=== PATIENT | female | born 1985 | race Caucasian/White ===

== ENCOUNTER 2018-04-02 23:32 | Emergency (ER) | payer BC ==
[2018-04-03] MEDS ORDERED: ACTIVATED CHARCOAL/SORBITOL SOL 50 GM/240 ML BTL PO ONE
[2018-04-03] MEDS ORDERED: 0.9 % SODIUM CHLORIDE 1,000 ML BAG IV ONE (00:01)
[2018-04-03 00:27] LABS: BASO % 0.3 % (0-6); EOS % 0.4 % (0-6); GRAN % 60.2 % (47-80); HEMATOCRIT 39.4 % (35.0-47.0); LYMPH % 32.9 % (16-45); MEAN PLATELET VOLUME 11.3 fl (7.4-10.4); MONO % 6.2 % (0-9); PLATELET COUNT 214 K/uL (130-400); RED BLOOD COUNT 4.33 M/uL (3.80-5.40); RED CELL DISTRIBUTION WIDTH 12.9 % (11.5-14.5); WHITE BLOOD COUNT W/O DIFF 7.1 K/uL (4.2-12.2)
[2018-04-03 00:40] LABS: BILIRUBIN,TOTAL < 0.20 mg/dL (0.2-1.0); BLOOD UREA NITROGEN 10 mg/dL (6-20); CREATININE 0.9 mg/dL (0.5-0.9); EST GLOMERULAR FILTRATION RATE > 60 mL/min
[2018-04-03 00:43] LABS: GLUCOSE,RANDOM 87 mg/dL (74-109)
[2018-04-03 00:45] LABS: ALT/SGPT 13 U/L (<33); AST/SGOT 17 U/L (10.0-35.0)
[2018-04-03 00:46] LABS: ACETAMINOPHEN < 5.0 ug/mL (10.0-30.0); ALB/GLOB RATIO 1.8 (1.1-1.8); ALBUMIN 4.5 g/dL (4.0-5.0); ALKALINE PHOSPHATASE 48 U/L (35-104); SALICYLATE < 0.3 mg/dL (2.8-20)
--- NOTE | 2018-04-03 02:41 | Emergency Department Record ---
History of Present Illness - General Chief Complaint: Ingestion Stated Complaint: OD Time Seen by Provider: 04/02/18 23:58 Source: Patient Mode of Arrival: EMS Limitations: No limitations - History of Present Illness Initial Comments: pt brought in by ems 30 minutes after she had overdosed taking 5 valium and drinking a six pack of beer. pt denies suicide attempt and states that if she wanted to she would have taken all 90 of her pills. she states she was just having a stressful day. pt states she would never commit suicide, that it is a very selfish thing to do and she has children. Onset/Timin -: Minutes(s) - Related Data Home Medications Medication Instructions Recorded Confirmed Last Taken Diazepam [Valium] 10 mg PO BID 04/02/18 04/02/18 Unknown Allergies Allergy/AdvReac Type Severity Reaction Status Date / Time amoxicillin Allergy Unknown HIVES Verified 04/02/18 23:49 Carbapenems Allergy Unknown PT UNSURE Verified 04/02/18 23:49 OF REACTION ceftriaxone sodium Allergy Unknown "I don't Verified 04/02/18 23:49 [From ROCEPHIN] want it." Cephalosporins Allergy Unknown PT UNSURE Verified 04/02/18 23:49 OF REACTION clavulanic acid Allergy Unknown PT UNSURE Verified 04/02/18 23:49 OF REACTION Penicillins Allergy Unknown RASH Verified 04/02/18 23:49 Sulfa (Sulfonamide Allergy Unknown PT UNSURE Verified 04/02/18 23:49 Antibiotics) OF REACTION sulfacetamide Allergy Unknown PT UNSURE Verified 04/02/18 23:49 OF REACTION Travel Screening - Travel/Exposure Within Last 30 Days Have you traveled within the last 30 days?: No - Travel/Exposure Within Last Year Have you traveled outside the [place] in the last year?: No - Additonal Travel Details Have you been exposed to anyone with a communicable illness?: No - Travel Symptoms Symptom Screening: None Past Medical History - SOCIAL HISTORY Smoking Status: Current every day smoker Alcohol Use: Occasional Drug Use: None - RESPIRATORY Hx Respiratory Disorders: No - CARDIOVASCULAR Hx Cardio Disorders: No - NEURO Hx Neuro Disorders: Yes Hx Headaches: Yes Comment:: hx meningitits - GI Hx GI Disorders: No - Hx Genitourinary Disorders: No - ENDOCRINE Hx Endocrine Disorders: No - MUSCULOSKELETAL Hx Musculoskeletal Disorders: No - PSYCH Hx Psych Problems: Yes Comment:: adhd - HEMATOLOGY/ONCOLOGY Hx Hematology/Oncology Disorders: No Family Medical History Any Significant Family History?: No Course Vital Signs 04/02/18 04/03/18 04/03/18 23:38 00:24 00:25 Temperature 98.1 F Pulse Rate [ 122 H 105 H Pulse Ox Probe] Respiratory 18 20 Rate Blood Pressure 142/70 126/28 [Left Arm] Pulse Ox 96 97 97 04/03/18 04/03/18 01:15 02:00 Temperature Pulse Rate [ 92 H 90 Pulse Ox Probe] Respiratory 20 20 Rate Blood Pressure 108/73 107/68 [Left Arm] Pulse Ox 96 95 Medical Decision Making - Lab Data Result diagrams: 04/03/18 00:15 04/03/18 00:15 Lab Results 04/03/18 04/03/18 04/03/18 Range/Units 00:03 00:15 00:15 WBC 7.1 (4.2-12.2) K/uL RBC 4.33 (3.80-5.40) M/uL Hgb 13.0 (11.6-16.0) gm/dl Hct 39.4 (35.0-47.0) % MCV 91.0 (81-97) fl MCH 30.0 (27-33) pg MCHC 33.0 (32-36) g/dl RDW 12.9 (11.5-14.5) % Plt Count 214 (130-400) K/uL MPV 11.3 H (7.4-10.4) fl Gran % 60.2 (47-80) % Lymphocytes % 32.9 (16-45) % Monocytes % 6.2 (0-9) % Eosinophils % 0.4 (0-6) % Basophils % 0.3 (0-6) % Sodium 148 H (136-145) mmol/L Potassium 4.2 (3.4-4.5) mmol/L Chloride 104 (98-107) mmol/L Carbon Dioxide 23.0 (22-29) mmol/L Anion Gap 21.0 H (7-16) BUN 10 (6-20) mg/dL Creatinine 0.9 (0.5-0.9) mg/dL Estimated GFR > 60 mL/min Random Glucose 87 (74-109) mg/dL Calcium 8.8 (8.6-10.0) mg/dL Total Bilirubin < 0.20 L (0.2-1.0) mg/dL AST 17 (10.0-35.0) U/L ALT 13 (<33) U/L Alkaline Phosphatase 48 (35-104) U/L Total Protein 7.0 (6.6-8.7) g/dL Albumin 4.5 (4.0-5.0) g/dL Globulin 2.5 (1.4-4.8) gm/dL Albumin/Globulin Ratio 1.8 (1.1-1.8) Salicylates < 0.3 L (2.8-20) mg/dL Acetaminophen < 5.0 L (10.0-30.0) ug/mL Ethyl Alcohol Cancelled 0.200 H Disposition Quality - Blood Pressure Screening Does Patient Have Any of the Following: No Blood Pressure Classification: Normal BP Reading Systolic Measurement: 107 Diastolic Measurement: 68 Screening for High Blood Pressure: < Normal BP, F/U Not Required > [G8721]
--- NOTE | 2018-04-03 02:48 | Emergency Department Record ---
History of Present Illness - General Chief Complaint: Ingestion Stated Complaint: OD Time Seen by Provider: 04/02/18 23:58 Source: Patient, EMS Mode of Arrival: EMS Limitations: No limitations - History of Present Illness Initial Comments: pt took 5 valium and drank a 6pack of beer 30 min [employer]. pt denies suicide intent. she states she was just having a stressful day. she states if she wanted to she would have taken all 90. she states suicide is a very selfish thing to do MD Complaint: Intentional overdose Onset/Timin -: Minutes(s) - [place] Coma Scale Eye Response: (4) Open spontaneously Motor Response: (6) Obeys commands Verbal Response: (5) Oriented Mihaela Total: 15 Substance Ingested: valium and beer Number of Pills Ingested: 5 Time of Ingestion: 23:00 - Detail Intent: Want to go to sleep Context: Accidental Overdose: Was drinking then took pills Context: Intentional Overdose: Relationship problems Treatments Prior to Arrival: None - Related Data Home Medications Medication Instructions Recorded Confirmed Last Taken Diazepam [Valium] 10 mg PO BID 04/02/18 04/02/18 Unknown Allergies Allergy/AdvReac Type Severity Reaction Status Date / Time amoxicillin Allergy Unknown HIVES Verified 04/02/18 23:49 Carbapenems Allergy Unknown PT UNSURE Verified 04/02/18 23:49 OF REACTION ceftriaxone sodium Allergy Unknown "I don't Verified 04/02/18 23:49 [From ROCEPHIN] want it." Cephalosporins Allergy Unknown PT UNSURE Verified 04/02/18 23:49 OF REACTION clavulanic acid Allergy Unknown PT UNSURE Verified 04/02/18 23:49 OF REACTION Penicillins Allergy Unknown RASH Verified 04/02/18 23:49 Sulfa (Sulfonamide Allergy Unknown PT UNSURE Verified 04/02/18 23:49 Antibiotics) OF REACTION sulfacetamide Allergy Unknown PT UNSURE Verified 04/02/18 23:49 OF REACTION Travel Screening - Travel/Exposure Within Last 30 Days Have you traveled within the last 30 days?: No - Travel/Exposure Within Last Year Have you traveled outside the [place] in the last year?: No - Additonal Travel Details Have you been exposed to anyone with a communicable illness?: No - Travel Symptoms Symptom Screening: None Review of Systems Reviewed: No additional complaints except as noted below Constitutional: Reports: As per HPI. Denies: Chills, Fever, Malaise, Night sweats, Weakness, Weight change Eyes: Reports: As per HPI. Denies: Eye discharge, Eye pain, Photophobia, Vision change ENT: Reports: As per HPI. Denies: Congestion, Dental pain, Ear pain, Epistaxis , Hearing loss, Throat pain Respiratory: Reports: As per HPI. Denies: Cough, Dyspnea, Hemoptysis, Stridor, Wheezes Cardiovascular: Reports: As per HPI. Denies: Arrhythmia, Chest pain, Dyspnea on exertion, Edema, Murmurs, Orthopnea, Palpitations, Paroxysmal nocturnal dyspnea, Rheumatic Fever, Syncope Endocrine: Reports: As per HPI. Denies: Fatigue, Heat or cold intolerance, Polydipsia, Polyuria Gastrointestinal: Reports: As per HPI. Denies: Abdominal pain, Constipation, Diarrhea, Hematemesis, Hematochezia, Melena, Nausea, Vomiting Genitourinary: Reports: As per HPI. Denies: Abnormal menses, Discharge, Dyspareunia, Dysuria, Frequency, Hematuria, Incontinence, Retention, Urgency Musculoskeletal: Reports: As per HPI. Denies: Arthralgia, Back pain, Gout, Joint swelling, Myalgia, Neck pain Skin: Reports: As per HPI. Denies: Bruising, Change in color, Change in hair/ nails, Lesions, Pruritus, Rash Neurological: Reports: As per HPI. Denies: Abnormal gait, Confusion, Headache, Numbness, Paresthesias, Seizure, Tingling, Tremors, Vertigo, Weakness Psychiatric: Reports: As per HPI, Anxiety, Depression. Denies: Auditory hallucinations, Homicidal thoughts, Suicidal thoughts, Visual hallucinations Hematological/Lymphatic: Reports: As per HPI. Denies: Anemia, Blood Clots, Easy bleeding, Easy bruising, Swollen glands Past Medical History - SOCIAL HISTORY Smoking Status: Current every day smoker Alcohol Use: Occasional Drug Use: None - RESPIRATORY Hx Respiratory Disorders: No - CARDIOVASCULAR Hx Cardio Disorders: No - NEURO Hx Neuro Disorders: Yes Hx Headaches: Yes Comment:: hx meningitits - GI Hx GI Disorders: No - Hx Genitourinary Disorders: No - ENDOCRINE Hx Endocrine Disorders: No - MUSCULOSKELETAL Hx Musculoskeletal Disorders: No - PSYCH Hx Psych Problems: Yes Comment:: adhd - HEMATOLOGY/ONCOLOGY Hx Hematology/Oncology Disorders: No Family Medical History Any Significant Family History?: No Physical Exam - General General Appearance: Alert, Oriented x3, Cooperative, Mild distress Limitations: No limitations - Head Head exam: Normal inspection - Eye Eye exam: Normal appearance, PERRL, EOMI Pupils: Normal accommodation - ENT ENT exam: Normal exam, Mucous membranes moist, Normal external ear exam, Normal orophraynx Ear exam: Normal external inspection. negative: External canal tenderness Nasal Exam: Normal inspection. negative: Discharge, Sinus tenderness Mouth exam: Normal external inspection, Tongue normal Teeth exam: Normal inspection. negative: Dental caries Throat exam: Normal inspection. negative: Tonsillar erythema, Tonsillar exudate - Neck Neck exam: Normal inspection, Full ROM. negative: Tenderness - Respiratory Respiratory exam: Normal lung sounds bilaterally. negative: Respiratory distress - Cardiovascular Cardiovascular Exam: Normal rhythm, Normal heart sounds, Tachycardia - GI/Abdominal GI/Abdominal exam: Soft, Normal bowel sounds. negative: Tenderness - Rectal Rectal exam: Deferred - exam: Deferred - Extremities Extremities exam: Normal inspection, Full ROM, Normal capillary refill. negative: Tenderness - Back Back exam: Reports: Normal inspection, Full ROM. Denies: Muscle spasm, Rash noted, Tenderness - Neurological Neurological exam: Alert, CN II-XII intact, Normal gait, Oriented X3 - Psychiatric Psychiatric exam: Normal affect, Normal mood - Skin Skin exam: Dry, Intact, Normal color, Warm Course Vital Signs 04/02/18 04/03/18 04/03/18 23:38 00:24 00:25 Temperature 98.1 F Pulse Rate [ 122 H 105 H Pulse Ox Probe] Respiratory 18 20 Rate Blood Pressure 142/70 126/28 [Left Arm] Pulse Ox 96 97 97 04/03/18 04/03/18 01:15 02:00 Temperature Pulse Rate [ 92 H 90 Pulse Ox Probe] Respiratory 20 20 Rate Blood Pressure 108/73 107/68 [Left Arm] Pulse Ox 96 95 - Reevaluation(s) Reevaluation #1: 04/03/18 02:49 pt arrived 30 min after ingestion so she was given charcoal which she drank. Reevaluation #2: 04/03/18 02:50 pt sleeping. sats 96% Reevaluation #3: 04/03/18 06:11 pt resting Reevaluation #4: 04/03/18 06:37 pt awake. she denies suicidality and states she just wanted to sleep. she once again states that she would have taken all 90 if she wanted to . Reevaluation #5: 04/03/18 06:41 she is being discharged in the care of her . she is able to ambulate around the department without difficulty 04/03/18 06:44 Medical Decision Making - Lab Data Result diagrams: 04/03/18 00:15 04/03/18 00:15 Lab Results 04/03/18 04/03/18 04/03/18 Range/Units 00:03 00:15 00:15 WBC 7.1 (4.2-12.2) K/uL RBC 4.33 (3.80-5.40) M/uL Hgb 13.0 (11.6-16.0) gm/dl Hct 39.4 (35.0-47.0) % MCV 91.0 (81-97) fl MCH 30.0 (27-33) pg MCHC 33.0 (32-36) g/dl RDW 12.9 (11.5-14.5) % Plt Count 214 (130-400) K/uL MPV 11.3 H (7.4-10.4) fl Gran % 60.2 (47-80) % Lymphocytes % 32.9 (16-45) % Monocytes % 6.2 (0-9) % Eosinophils % 0.4 (0-6) % Basophils % 0.3 (0-6) % Sodium 148 H (136-145) mmol/L Potassium 4.2 (3.4-4.5) mmol/L Chloride 104 (98-107) mmol/L Carbon Dioxide 23.0 (22-29) mmol/L Anion Gap 21.0 H (7-16) BUN 10 (6-20) mg/dL Creatinine 0.9 (0.5-0.9) mg/dL Estimated GFR > 60 mL/min Random Glucose 87 (74-109) mg/dL Calcium 8.8 (8.6-10.0) mg/dL Total Bilirubin < 0.20 L (0.2-1.0) mg/dL AST 17 (10.0-35.0) U/L ALT 13 (<33) U/L Alkaline Phosphatase 48 (35-104) U/L Total Protein 7.0 (6.6-8.7) g/dL Albumin 4.5 (4.0-5.0) g/dL Globulin 2.5 (1.4-4.8) gm/dL Albumin/Globulin Ratio 1.8 (1.1-1.8) Salicylates < 0.3 L (2.8-20) mg/dL Acetaminophen < 5.0 L (10.0-30.0) ug/mL Ethyl Alcohol Cancelled 0.200 H Disposition Disposition: Discharge Clinical Impression: Overdose Qualifiers: Encounter type: initial encounter Injury intent: undetermined intent Qualified Code(s): T50.904A - Poisoning by unspecified drugs, medicaments and biological substances, undetermined, initial encounter Disposition: Home, Self-Care Condition: (2) Stable Instructions: Adult Overdose (ED) Additional Instructions: follow up with family doctor today. return sooner if worse. push fluids. rest. no driving this morning Forms: Patient Portal Access Quality - Quality Measures Quality Measures: N/A - Blood Pressure Screening Does Patient Have Any of the Following: No Blood Pressure Classification: Normal BP Reading Systolic Measurement: 110 Diastolic Measurement: 62 Screening for High Blood Pressure: < Normal BP, F/U Not Required > [G8783]
[2018-04-03 04:15] LABS: URINE APPEARANCE CLEAR; URINE BILIRUBIN NEGATIVE (NEGATIVE); URINE BLOOD NEGATIVE (NEGATIVE); URINE COLOR YELLOW; URINE GLUCOSE (UA) NEGATIVE (NEGATIVE); URINE KETONE NEGATIVE (NEGATIVE); URINE LEUKOCYTE ESTERASE NEGATIVE (NEGATIVE); URINE NITRITE NEGATIVE (NEGATIVE); URINE PROTEIN NEGATIVE (NEGATIVE); URINE UROBILINOGEN 0.2 E.U./dL (0.20 - 1.00)
[2018-04-03 04:18] LABS: AMPHETAMINE SCREEN URINE DETECTED; BARBITURATE SCREEN URINE NOT DETECTED; BENZODIAZEPINE SCREEN URINE DETECTED; COCAINE SCREEN URINE NOT DETECTED; METHADONE SCREEN URINE NOT DETECTED; METHAMPHETAMINE SCREEN NOT DETECTED; OPIATE SCREEN URINE NOT DETECTED; OXYCODONE SCREEN URINE NOT DETECTED; PHENCYCLIDINE SCREEN URINE NOT DETECTED; PROPOXYPHENE SCREEN URINE NOT DETECTED; THC SCREEN URINE NOT DETECTED; TRICYCLIC ANTIDEPRESSANT SCRN NOT DETECTED
== END 2018-04-03 06:50 | disposition home or self-care (01) ==
LOC: ER 23:32
DX: T42.4X1A Poisoning by benzodiazepines, accidental (unintentional), initial encounter (principal); T51.0X1A Toxic effect of ethanol, accidental (unintentional), initial encounter; F17.210 Nicotine dependence, cigarettes, uncomplicated
CPT/HCPCS: 99284 ×2; 96360; 96361; 85025; 80053; 81003; 80305; G0480 ×3; 80320; 80329; J7030